=== PATIENT | female | born 1990 | race African-American/Black ===

== ENCOUNTER 2019-08-28 08:20 | Outpatient (CLI) | payer BC, SELFPAY ==
--- NOTE | ~2019-08-28 | XR_ITS ---
EXAMINATION: XR knee LT 3V DATE: 08/28/2019 08:48 INDICATION: Left knee pain. TECHNIQUE: 3 views of left knee were obtained. COMPARISON: None. FINDINGS: Bone alignment is normal. No fracture. There is mild osteoarthritis of medial and patellofe moral compartments characterized by tiny marginal osteophytes. No knee joint effusion. IMPRESSION: 1. Mild left knee osteoarthritis. Reviewed, dictated and finalized at location A.
[2019-08-28 09:06] LABS: Basophils Percent Auto 0.6 % (0.2-1.2); Eosinophils Absolute Auto 0.1 K/mm3 (0-0.3); Hematocrit 36.3 % (37.0-47.0); Hemoglobin 11.9 g/dL (12.0-15.0); Immature Granulocyte Absolute 0.01 K/mm3 (0.00-0.031); Immature Granulocyte Percent A 0.1 % (0-0.5); Lymphocytes Percent Auto 27.3 % (18.3-44.2); Mean Corpuscular HGB Conc 32.8 g/dl (32-36); Mean Corpuscular Hemoglobin 30.4 pg (26-34); Mean Corpuscular Volume 92.8 fl (80-100); Mean Platelet Volume 9.6 fl (7.4-10.4); Monocytes Absolute Auto 0.9 K/mm3 (0.1-0.6); Monocytes Percent Auto 13.4 % (2.6-8.5); Neutrophils Absolute Auto 3.9 K/mm3 (1.3-6.7); Neutrophils Percent Auto 56.6 % (45.5-73.1); Platelet Count Result 303 k/mm3 (150-375); Red Blood Count 3.91 M/mm3 (4.2-5.4); Red Cell Distribution Width 12.8 % (11.5-14.5)
[2019-08-28 09:07] LABS: Alanine Aminotransferase 22 U/L (4-35); Alkaline Phosphatase 46 U/L (38-126); Aspartate Amino Transferase 23 U/L (14-36); Bilirubin,Total 0.4 mg/dL (0.2-1.3); Blood Urea Nitrogen 12 mg/dL (7-17); Calcium 8.8 mg/dL (8.4-10.2); Carbon Dioxide 23 mmol/L (22-30); Chloride 107 mmol/L (98-107); Estimated Glomerular Filt Rate > 60; Glucose 88 mg/dL (65-105); Potassium 4.3 mmol/L (3.4-5.0); Sodium 137 mmol/L (137-145)
[2019-08-28 09:27] LABS: Hemoglobin A1C 5.5 % (<5.7)
== END 2019-08-28 08:21 | disposition home or self-care (01) ==
PROVIDERS: PCP Family Medicine; Visit Provider Physician Assistant
DX: J45.909 Unspecified asthma, uncomplicated (principal); R53.83 Other fatigue; R63.5 Abnormal weight gain; R73.09 Other abnormal glucose; R73.01 Impaired fasting glucose; M17.12 Unilateral primary osteoarthritis, left knee
CPT/HCPCS: 36415; 73562; 80053; 83036; 84443; 85025

== ENCOUNTER → 2021-03-08 14:57 | Outpatient (CLI) | payer BC, SELFPAY ==
--- NOTE | ~2021-03-08 | US_ITS ---
EXAMINATION: US pelvic complete EXAM DATE: 03/08/2021 15:13 INDICATION: Other specified abnormal uterine and vaginal bleeding . TECHNIQUE: Pelvic transabdominal sonogram was performed. There are multiple grayscale and Doppler im ages available for interpretation. There is no prior study for comparison. FINDINGS: Uterus measures 9.2 x 5.2 x 6.0 cm, with multiple fibroids measuring up to 3 cm. Endometri al stripe measures 15 mm, within normal limits. There is no free pelvic fluid. Right adnexa: The ovary measures 3.8 x 2.5 x 4.1 cm and is morphologically normal. Ovarian vascular f low confirmed. Left adnexa: The ovary measures 3.0 x 2.4 x 3.1 cm and is morphologically normal. Ovarian vascular fl ow confirmed. IMPRESSION: Fibroid uterus. Reviewed, dictated and finalized at location G. RY CHEF IMPRESSION: Fibroid uterus.
== END ==
PROVIDERS: Visit Provider Obstetrics & Gynecology
DX: N93.8 Other specified abnormal uterine and vaginal bleeding (principal); D25.9 Leiomyoma of uterus, unspecified
CPT/HCPCS: 76856

== ENCOUNTER 2021-05-26 16:39 | Emergency (ER) | payer BC, SELFPAY ==
[2021-05-26 16:42] VITALS: BP 133/88; PULSE 86; RESP 18; TEMP 36.2; O2SAT 100
--- NOTE | 2021-05-26 17:12 | ED.FEMALEGU ---
HPI - Female Genitourinary General Chief complaint: Vaginal Bleeding Stated complaint: Heavy Menstrual Bleeding Time Seen by Provider: 05/26/21 16:56 Source: patient and RN notes reviewed Mode of arrival: ambulatory Limitations: no limitations History of Present Illness HPI Narrative: Pt is a 31 y/o female, without signifcant PMHx, presents to ED via POV with C/O suprapubic cramping and heavy vaginal bleeding, onset of symptoms two days ago after receiving her first ever dose of Depo BC injection. She reports noting blood clots present and she is saturating a large pad every couple of hours. She endorses feeling light headed when standing at times but denies dizziness, vision changes, CP, SOB, NVDC or urinary discomfort. She has no STI concerns and reports she was screened for and STI by her OBGYN prior to receiving her injection this week (Dr Gillis) MD elicited complaint: vaginal bleeding Onset (ago): day(s) (2) Location of symptoms: suprapubic Severity: mild Female Urogenital Radiation: Non-Radiating Severity scale (1-10): 5 Quality of pain: cramping Consistency: intermittent Vaginal discharge: none Vaginal bleeding: heavy Relieving factors: none Associated symptoms: other (refer to HPI) Treatment prior to arrival: none Sexual activity: Yes Patient : No Date of Last Menstrual Period: 05/24/21 Related Data Home Medications Medication Instructions Recorded Confirmed fexofenadine 60 mg tablet 60 mg PO Q12H 08/21/19 10/17/19 spironolactone 50 mg tablet 50 mg PO DAILY 08/26/20 08/26/20 Allergies Allergy/AdvReac Type Severity Reaction Status Date / Time No Known Allergies Allergy Unknown Unverified 08/26/20 13:56 Review of Systems Review of Systems: refer to [facility] Past Medical History Medical History Allergic rhinitis Asthma Osteoarthritis of left knee Surgical History Surgical History S/P cubital tunnel release Family History Family History Mother Diabetes mellitus Hypertension Social History Social History (Updated 08/26/20 @ 13:56 by Irma Prado CMA) Smoking status: Never smoker Second hand tobacco smoke exposure: No Alcohol intake: never Substance use: never Substance use type: does not use Gender identity (if verbalized by the patient): Female Exam Const: General: healthy appearing, no acute distress and alert Nutritional Appearance: obese Orientation/consciousness: patient oriented x3 Limitations: altered mental status HENMT: Head: normal to inspection General nose exam: Normal nares present Mouth: Yes Normal oral and palatal mucosa present Eyes: General: appearance normal, both eyes and all related structures Visual Del Real: normal visual del real by confrontation Conjunctivae: conjunctivae normal Pupils: Equal, round and reactive pupils present EOM: EOMs intact bilaterally Neck: Neck: normal visual inspection and no meningeal signs Lymphatic: no lymphadenopathy noted Chest: Chest palpation & inspection: normal inspection of the chest Resp: Effort & Inspection: normal respiratory effort Auscultation: clear to auscultation bilaterally Cardio: Rate: regular rate Rhythm: regular rhythm GI: GI Palp: Yes Soft to palpation Other: no guarding, negative lorenz's sign, no pain at McBurney's point. Mild diffuse suprapubic TTP, no palpable mass : General: Yes bladder normal to palpation, Yes CVA tenderness and Yes no CVA tenderness Skin: General skin exam: normal color Neuro: General: patient oriented x3, moves all extremities, no meningeal signs and no focal motor deficits Cranial nerves: Yes Nystagmus not present Speech: normal speech Extrem: General: normal to inspection Psych: Affect: normal affect Attitude: cooperative Judgement: Good judgement present (Psych) Co
[2021-05-26 17:25] LABS: Basophils Absolute Auto 0.1 K/mm3 (0.0-0.1); Basophils Percent Auto 0.8 % (0.2-1.2); Eosinophils Absolute Auto 0.1 K/mm3 (0-0.3); Eosinophils Percent Auto 1.5 % (0-4.4); Hematocrit 33.6 % (37.0-47.0); Hemoglobin 10.9 g/dL (12.0-15.0); Immature Granulocyte Absolute 0.02 K/mm3 (0.00-0.031); Immature Granulocyte Percent A 0.2 % (0-0.5); Lymphocytes Absolute Auto 2.46 K/mm3 (0.9-3.2); Lymphocytes Percent Auto 28.8 % (18.3-44.2); Mean Corpuscular HGB Conc 32.4 g/dl (32-36); Mean Corpuscular Volume 86.4 fl (80-100); Mean Platelet Volume 8.8 fl (7.4-10.4); Monocytes Percent Auto 11.5 % (2.6-8.5); Neutrophils Absolute Auto 4.9 K/mm3 (1.3-6.7); Neutrophils Percent Auto 57.2 % (45.5-73.1); Platelet Count Result 394 k/mm3 (150-375); Red Blood Count 3.89 M/mm3 (4.2-5.4); Red Cell Distribution Width 13.5 % (11.5-14.5); White Blood Count 8.5 K/mm3 (4.5-10.0)
[2021-05-26 17:35] LABS: Alanine Aminotransferase 28 U/L (4-35); Albumin Level 4.3 g/dL (3.5-5.1); Alkaline Phosphatase 56 U/L (38-126); Anion Gap 8 mmol/L (8-16); Aspartate Amino Transferase 31 U/L (14-36); Bilirubin,Total 0.4 mg/dL (0.2-1.3); Blood Urea Nitrogen 16 mg/dL (7-17); Calcium 9.1 mg/dL (8.4-10.2); Carbon Dioxide 20 mmol/L (22-30); Chloride 109 mmol/L (98-107); Estimated CRCL calculation 110 ml/min; Estimated Glomerular Filt Rate > 60; Glucose 101 mg/dL (65-110); Potassium 4.4 mmol/L (3.4-5.0); SPREG INTERNAL CONTROL Positive; Serum Qual hCG Negative; Sodium 137 mmol/L (137-145)
== END 2021-05-26 17:56 | disposition home or self-care (01) ==
PROVIDERS: Emergency Provider Nurse Practitioner Family; PCP Family Medicine
DX: N93.8 Other specified abnormal uterine and vaginal bleeding (principal); J45.909 Unspecified asthma, uncomplicated; M17.12 Unilateral primary osteoarthritis, left knee
CPT/HCPCS: 36415; 80053; 84703; 85025; 99284

== ENCOUNTER 2021-08-15 20:33 | Emergency (ER) | payer BC, SELFPAY ==
[2021-08-15 20:44] VITALS: BP 140/78; PULSE 92; RESP 18; TEMP 36.4; O2SAT 100
[2021-08-15 21:30] VITALS: BP 116/75; PULSE 91; RESP 16; O2SAT 100
--- NOTE | 2021-08-15 22:00 | PC.NURSE ---
Pt refused pelvic exam. EDP Michael notified.
[2021-08-15 22:12] VITALS: BP 110/63; PULSE 92
[2021-08-15 22:14] VITALS: BP 120/76; PULSE 96
[2021-08-15 22:15] LABS: Basophils Absolute Auto 0.1 K/mm3 (0.0-0.1); Basophils Percent Auto 0.4 % (0.2-1.2); Eosinophils Absolute Auto 0.1 K/mm3 (0-0.3); Eosinophils Percent Auto 0.4 % (0-4.4); Hematocrit 28.3 % (37.0-47.0); Hemoglobin 8.8 g/dL (12.0-15.0); Immature Granulocyte Absolute 0.05 K/mm3 (0.00-0.031); Immature Granulocyte Percent A 0.4 % (0-0.5); Lymphocytes Absolute Auto 2.33 K/mm3 (0.9-3.2); Lymphocytes Percent Auto 19.6 % (18.3-44.2); Mean Corpuscular HGB Conc 31.1 g/dl (32-36); Mean Corpuscular Hemoglobin 27.3 pg (26-34); Mean Corpuscular Volume 87.9 fl (80-100); Mean Platelet Volume 8.5 fl (7.4-10.4); Monocytes Percent Auto 8.4 % (2.6-8.5); Neutrophils Absolute Auto 8.4 K/mm3 (1.3-6.7); Neutrophils Percent Auto 70.8 % (45.5-73.1); Platelet Count Result 438 k/mm3 (150-375); Red Blood Count 3.22 M/mm3 (4.2-5.4); White Blood Count 11.9 K/mm3 (4.5-10.0)
[2021-08-15 22:16] VITALS: BP 110/81; PULSE 107
--- NOTE | 2021-08-15 22:19 | ED.FEMALEGU ---
HPI - Female Genitourinary General Chief complaint: Vaginal Bleeding Stated complaint: Vaginal bleed, pt states changing pads q 30 min Time Seen by Provider: 08/15/21 21:31 Source: patient, RN notes reviewed and old records reviewed Mode of arrival: ambulatory Limitations: no limitations History of Present Illness HPI Narrative: This is a 31 year old female with history of fibroids who presents for evaluation of heavy vaginal bleeding. Patient started her menstrual cycle today. She developed lower abdominal cramping, and then she developed heavy vaginal bleeding. She reports bleeding started 5 hours ago. She was changing her pad every 30 minutes, but her bleeding has decreased over past 1.5 hours. She has taken ibuprofen for her pain. She denies weakness or shortness of breath. She denies nausea or vomiting. Patient states she knows she has fibroids but she came to ER to see if she has endometriosis. She has been seeing her housekeeper/laundry assistant Dr. Gillis for her symptoms and she received depo last week for her bleeding. Related Data Home Medications Medication Instructions Recorded Confirmed fexofenadine 60 mg tablet 60 mg PO Q12H 08/21/19 10/17/19 spironolactone 50 mg tablet 50 mg PO DAILY 08/26/20 08/26/20 Allergies Allergy/AdvReac Type Severity Reaction Status Date / Time No Known Allergies Allergy Unknown Verified 08/15/21 21:29 Review of Systems Review of Systems: All systems reviewed & are unremarkable except as noted in HPI and below PMFSH Past Medical History Medical History Allergic rhinitis Asthma Osteoarthritis of left knee Surgical History Surgical History S/P cubital tunnel release Family History Family History Mother Diabetes mellitus Hypertension Social History Social History (Updated 08/26/20 @ 13:56 by Irma Prado CMA) Smoking status: Never smoker Second hand tobacco smoke exposure: No Alcohol intake: never Substance use: never Substance use type: does not use Gender identity (if verbalized by the patient): Female Exam Const: General: no acute distress and alert Orientation/consciousness: patient oriented x3 Eyes: EOM: EOMs intact bilaterally Chest: Chest palpation & inspection: normal inspection of the chest Resp: Effort & Inspection: normal respiratory effort and no retractions Auscultation: clear to auscultation bilaterally Cardio: Rate: regular rate Rhythm: regular rhythm Heart sounds: no murmurs GI: GI Palp: Yes Soft to palpation, No Tenderness to palpation present (GI) and No Guarding due to palpation present (GI) Auscultation: normal bowel sounds Skin: General skin exam: normal color Rashes: no rashes Neuro: General: patient oriented x3, moves all extremities and CN's II-XI intact bilaterally Psych: Mental Status: mental status grossly normal Affect: normal affect Course Reevaluation(s) Reevaluation #1: Patient refuses pelvic exam. She states she is only have spotting at this point. I informed patient that she is anemic now with hemoglobin of 8.8. I notified Dr. Gillis who will follow up with patient. Date: 08/15/21 Time: 23:01 Vital Signs Vital signs: Vital Signs Temperature 97.6 F 08/15/21 20:44 Pulse Rate 92 08/15/21 20:44 Respiratory Rate 18 08/15/21 20:44 Blood Pressure 140/78 08/15/21 20:44 Pulse Oximetry 100 08/15/21 20:44 Temperature 97.6 F 08/15/21 20:44 Pulse Rate 107 H 08/15/21 22:16 Respiratory Rate 16 08/15/21 21:30 Blood Pressure 110/81 08/15/21 22:16 Pulse Oximetry 100 08/15/21 21:30 MDM - Female Genitourinary Medical Records Attestation: I reviewed the patient's medical records. Lab Data Attestation: I reviewed the patient's lab results. Result diagrams: 08/15/21 22:09 Labs: Lab R
== END 2021-08-15 23:14 | disposition home or self-care (01) ==
PROVIDERS: Emergency Provider General Practice; PCP Obstetrics & Gynecology Gynecology
DX: N92.0 Excessive and frequent menstruation with regular cycle (principal); D64.9 Anemia, unspecified; J45.909 Unspecified asthma, uncomplicated; R73.03 Prediabetes; M17.12 Unilateral primary osteoarthritis, left knee; Z79.84 Long term (current) use of oral hypoglycemic drugs
CPT/HCPCS: 36415; 81025; 85025; 99284

== ENCOUNTER 2021-09-01 08:15 | Outpatient (RCR) | payer BC, SELFPAY ==
[2021-08-31 16:37] LABS: Hematocrit 27.1 % (37.0-47.0)
[2021-09-01] VITALS (8 sets, daily range): BP systolic 100–132; BP diastolic 64–81; PULSE 74–88; RESP 18–20; TEMP 37.2–37.8; O2SAT 96–100
== END 2021-11-29 23:59 | disposition home or self-care (01) ==
LOC: ANHCPCTRAN 08:15
PROVIDERS: PCP Family Medicine; Visit Provider Obstetrics & Gynecology Gynecology
DX: N92.0 Excessive and frequent menstruation with regular cycle (principal); D64.9 Anemia, unspecified
CPT/HCPCS: 36415; 36430; 85014; 85018; 86850; 86900; 86901; 86920; P9016

== ENCOUNTER 2021-09-05 14:54 | Outpatient (CLI) | payer BC, SELFPAY ==
[2021-09-05 15:36] LABS: Hematocrit 36.5 % (37.0-47.0); Hemoglobin 11.2 g/dL (12.0-15.0); Mean Corpuscular HGB Conc 30.7 g/dl (32-36); Mean Corpuscular Hemoglobin 28.4 pg (26-34); Mean Corpuscular Volume 92.6 fl (80-100); Mean Platelet Volume 8.5 fl (7.4-10.4); Platelet Count Result 470 k/mm3 (150-375); Red Blood Count 3.94 M/mm3 (4.2-5.4); Red Cell Distribution Width 16.9 % (11.5-14.5); White Blood Count 8.4 K/mm3 (4.5-10.0)
== END 2021-09-05 14:55 | disposition home or self-care (01) ==
LOC: ANHLAB 14:56
PROVIDERS: PCP Family Medicine; Visit Provider Obstetrics & Gynecology Gynecology
DX: N92.0 Excessive and frequent menstruation with regular cycle (principal)
CPT/HCPCS: 36415; 85027

== ENCOUNTER 2021-09-19 09:38 | Outpatient (CLI) | payer BC, SELFPAY ==
[2021-09-19 10:16] LABS: Anion Gap 6 mmol/L (8-16); Blood Urea Nitrogen 13 mg/dL (7-17); Calcium 8.6 mg/dL (8.4-10.2); Carbon Dioxide 22 mmol/L (22-30); Chloride 109 mmol/L (98-107); Estimated Glomerular Filt Rate > 60; Glucose 91 mg/dL (65-110); Sodium 137 mmol/L (137-145)
== END 2021-09-19 09:39 | disposition home or self-care (01) ==
LOC: ANHSURGERY 09:41
PROVIDERS: Anesthesiology; PCP Family Medicine; Visit Provider Obstetrics & Gynecology Gynecology
DX: R73.9 Hyperglycemia, unspecified (principal); Z01.818 Encounter for other preprocedural examination
CPT/HCPCS: 36415; 80048

== ENCOUNTER 2021-09-22 01:17 | Day surgery (SDC) | payer BC, SELFPAY ==
[2021-09-15 09:42] VITALS: BMI 41.6
--- NOTE | 2021-09-15 09:44 | PC.NURSE ---
Report to the Outpatient Waiting Room, entrance under the green pavilion located off [facility], at time ___0600am____ on date ___0-28-20____. OR Time: __0730am . - You and your visitor will be asked a series of questions to screen for COVID 19 for your protection. - Only one visitor is allowed at this time. - The patient visitor is requested to leave or wait in car when not with patient. - A mask is required within the hospital. Patients may have clear liquids (water, carbonated beverages, clear teas, apple juice) until 3 hours prior to surgery with a maximum of 20 ounces. Nothing to drink after 04:30 am 09-22-21 - No food from midnight 09-21-21 until time of surgery - Infants may have breast milk until 4 hours before surgery, infant formula 6 hours prior to surgery. - Children will be allowed to drink immediately following surgery. If applicable, please bring a bottle or sippy cup to assist with drinking. Juice, water, soda, and popsicles are readily available. For infants on formula, please bring formula the day of surgery. Pacifiers are allowed. Take the following medications with a SIP of water the morning of surgery: inhaler as needed Medications to discontinue per physician supplements/vitamins Date to take last tikb 3-45-21 Please no make-up, nail danish, hairspray, perfume, deodorant, or body powder the day of surgery. No jewelry (including any body piercings) or valuables the day of surgery, leave them at home. Please take a shower or bath the night before, or the morning of, surgery with an antibacterial soap. Wear comfortable, loose fitting clothing. Children are encouraged to wear pajamas. - Jewelry must be removed prior to entering the operating room. Rings and piercings that are not removed may be cut off. - The hospital will not accept responsibility for valuables. - Please leave all valuables, including medications, at home the day of surgery. If you are going home after surgery, a licensed local company flatbed truck driver must drive you home. - NO public transportation without another adult. - We recommend that an adult stay with you for 24 hours following discharge. - We also recommend that you do not drive, make important decision, drink alcoholic beverages, or take any drugs that were not prescribed by your health care provider for at least 24 hours after your discharge time. For Pediatric surgeries, we recommend two adults accompany the child home (only one inside the building at this time). Follow any additional instructions given to you from your surgeon. If you or anyone in your household have experienced Covid symptoms in the past week, please notify your surgeon or the nurse liaison at the phone number below for possible testing. Telephone instructions given to ___patient and asked if any additional questions and then verbalized understanding. Patient advised to call surgeon office or pre surgery nurse liaison [phone] if any additional questions.
--- NOTE | 2021-09-21 17:06 | WPDANESEPPF ---
Anes - Initial Pre Proc Eval Procedure: Operation Date: 09/22/21 07:30 Proposed Procedures p Hysteroscopy Dilation and Curettage with Possible Myosure - Laura Gillis MD Date/Time: 09/21/21 17:06 Surgeon: Laura Gillis MD Pre Op Diagnosis: menorrhagia, fibroids Patient Data Age: 31 Gender: F Height: 1.63 m Weight: 110 kg Allergies Allergy/AdvReac Type Severity Reaction Status Date / Time ethinyl estradiol AdvReac Mild Rash Verified 09/22/21 06:22 [From Sprintec (28)] norgestimate AdvReac Mild Rash Verified 09/22/21 06:22 [From Sprintec (28)] Home Medications Medication Instructions Recorded Confirmed Type fluticasone propionate 50 1 spray intranasal Q12H #18.2 mL 10/29/19 09/22/21 Rx mcg/actuation nasal spray,suspension albuterol sulfate 90 mcg/actuation 2 puff inhalation Q4H PRN 08/26/20 09/22/21 Rx aerosol inhaler (ProAir HFA) shortness of breath or wheezing #8.5 grams azelastine 137 mcg (0.1 %) nasal 1 spray intranasal Q12H #30 mL 08/26/20 09/15/21 Rx spray aerosol hyoscyamine sulfate 0.125 mg tablet 0.125 mg PO QID PRN dyspepsia #90 08/26/20 09/15/21 Rx tabs metformin 500 mg tablet 500 mg PO BID #180 tabs 08/26/20 09/22/21 Rx spironolactone 50 mg tablet 50 mg PO DAILY 08/26/20 09/22/21 History montelukast 10 mg tablet 10 mg PO QPM #90 tabs 12/16/20 09/22/21 Rx (Singulair) ferrous gluconate 324 mg (37.5 mg 324 mg PO DAILY #14 tabs 08/15/21 09/22/21 Rx iron) tablet sodium sul 1.479 gram-potas ch See Rx Instructions PO PER PKG DIR 09/07/21 Rx 0.188 gram-magnes sul 0.225 gram #24 tabs tablet (Sutab) Patient hx anesthesia problems: none Family hx anesthesia problems: none Results Review: All pre-operative results and documents have been reviewed as part of the pre-operative evaluation. [facility] Past Medical History Medical History (Updated 09/21/21 @ 17:07 by Rupert Osman MD) Abnormal uterine bleeding Allergic rhinitis Asthma Leiomyoma Morbid obesity with BMI of 40.0-44.9, adult Osteoarthritis of left knee Surgical History Surgical History S/P cubital tunnel release Family History Family History Mother Diabetes mellitus Hypertension Social History Social History Smoking status: Never smoker Second hand tobacco smoke exposure: No Alcohol intake: never Substance use: never Substance use type: does not use Living arrangements: with family Gender identity (if verbalized by the patient): Female Spiritual care concerns: No Anes - Eval Final PreProcedure Day of Procedure 09/21/21 17:06 Patient weight: morbidly obese Heart: regular rate and rhythm Lungs: clear to auscultation and normal air movement Airway: Mallampati scale class II Neurological: alert and oriented Last oral intake: >/= 8 hours ASA classification: III Emergent: no Anesthetic plan: proceed Anesthesia type and monitoring: general GIVS and LMA Results Review: All pre-operative results and documents have been reviewed as part of the pre-operative evaluation. Informed Consent: The patient's anesthetic plan and its attendant risks and benefits were discussed with the patient/family/POA. Questions were solicited and answers provided to the satisfaction of the patient/family/POA.
[2021-09-22] VITALS (8 sets, daily range): BP systolic 100–117; BP diastolic 52–71; PULSE 67–77; RESP 16–25; TEMP 36.1–36.6; O2SAT 96–100
[2021-09-22] MEDS: ACETAMINOPHEN 500 MG TABLET 1000 MG PO (06:26)
[2021-09-22] MEDS: LACTATED RINGERS 1,000 ML 30 ML IV CONT (06:53)
--- NOTE | 2021-09-22 07:00 | WPDHPUPDATE1 ---
History and Physical Update Update Date/Time: 09/22/21 07:00 History and Physical has been reviewed, including an updated exam of the patient. There are NO changes in the patient's condition. Risks, benefits, and alternatives have been discussed and questions answered. Patient agrees to proceed with procedure.
--- NOTE | 2021-09-22 07:00 | PM.HPGS ---
History of Present Illness History of Present Illness Consent: Risks, benefits, and alternatives have been discussed and questions answered. Patient agrees to proceed with procedure. Chief complaint: menorrhagia, fibroids Narrative: Janey Slade is a 31 year old female with menorrhagia and severe anemia requiring 2units packed red blood cells the 1st week of August. Most recent hemoglobin after 2units of packed red cells and a month of iron is 11.2. Pelvic ultrasound reveals multiple fibroids with the largest measuring 3cm. It was recommended to proceed with D&C hysteroscopy and possible MyoSure resection of fibroids. Risks of infection, bleeding, perforation, and fluid imbalance were reviewed. Patient voiced understanding and agrees to proceed. She has been taking Lysteda to prevent heavy bleeding. Review of Systems Review of Systems: not repeated day of surgery; patient states no changes in status PMFSH Past Medical History Medical History (Updated 09/21/21 @ 17:07 by Rupert Osman MD) Abnormal uterine bleeding Allergic rhinitis Asthma Leiomyoma Morbid obesity with BMI of 40.0-44.9, adult Osteoarthritis of left knee Surgical History Surgical History S/P cubital tunnel release Family History Family History Mother Diabetes mellitus Hypertension Social History Social History Smoking status: Never smoker Second hand tobacco smoke exposure: No Alcohol intake: never Substance use: never Substance use type: does not use Living arrangements: with family Gender identity (if verbalized by the patient): Female Spiritual care concerns: No Meds Home Medications and Allergies Home Medications Medication Instructions Recorded Confirmed Type fluticasone propionate 50 1 spray intranasal Q12H #18.2 mL 10/29/19 09/22/21 Rx mcg/actuation nasal spray,suspension albuterol sulfate 90 mcg/actuation 2 puff inhalation Q4H PRN 08/26/20 09/22/21 Rx aerosol inhaler (ProAir HFA) shortness of breath or wheezing #8.5 grams azelastine 137 mcg (0.1 %) nasal 1 spray intranasal Q12H #30 mL 08/26/20 09/15/21 Rx spray aerosol hyoscyamine sulfate 0.125 mg tablet 0.125 mg PO QID PRN dyspepsia #90 08/26/20 09/15/21 Rx tabs metformin 500 mg tablet 500 mg PO BID #180 tabs 08/26/20 09/22/21 Rx spironolactone 50 mg tablet 50 mg PO DAILY 08/26/20 09/22/21 History montelukast 10 mg tablet 10 mg PO QPM #90 tabs 12/16/20 09/22/21 Rx (Singulair) ferrous gluconate 324 mg (37.5 mg 324 mg PO DAILY #14 tabs 08/15/21 09/22/21 Rx iron) tablet sodium sul 1.479 gram-potas ch See Rx Instructions PO PER PKG DIR 09/07/21 Rx 0.188 gram-magnes sul 0.225 gram #24 tabs tablet (Sutab) Allergies Allergy/AdvReac Type Severity Reaction Status Date / Time ethinyl estradiol AdvReac Mild Rash Verified 09/22/21 06:22 [From Sprintec (28)] norgestimate AdvReac Mild Rash Verified 09/22/21 06:22 [From Sprintec (28)] Exam Const: General: healthy appearing and alert Nutritional Appearance: obese (BMI of 42) Orientation/consciousness: patient oriented x3 GI: GI Palp: Yes Soft to palpation, No Tenderness to palpation present (GI) and No Palpable mass present : External Female Exam: normal external appearance Speculum Exam - Vagina: normal appearance of the vagina and normal vaginal discharge Speculum Exam - Cervix: normal appearance of the cervix Bimanual exam- vagina & uterus: uterine size normal and consistency normal Bimanual Exam- Adnexa, other: normal adnexae and No adnexal tenderness Neuro: General: patient oriented x3 Assessment and Plan Assessment and plan (1) Abnormal uterine bleeding: Code(s): N93.9 - Abnormal uterine and vaginal bleeding, unspecified Status: Acute Assessment and Plan: Plan is
[2021-09-22 07:07] LABS: Glucose Point of Care 105 mg/dl (65-105)
[2021-09-22] MEDS: FERRIC SUBSULFATE 8 ML SOLUTION WITH APPLICATOR TOPICAL (08:45)
[2021-09-22] MEDS: KETOROLAC 30 MG/ML VIAL (*BKC) IV PUSH (08:51)
[2021-09-22] MEDS: fentaNYL CITRATE INJ (*CRX) 100 MCG/2 ML VIAL 25 MCG IV PUSH ×4 (09:25→09:36)
[2021-09-22] MEDS: oxyCODONE HCL (*CRX) 5 MG TAB IR PO (10:00)
[2021-09-22 10:15] LABS: Glucose Point of Care 126 mg/dl (65-105)
--- NOTE | 2021-09-22 10:32 | SUR.PHASEII ---
this nurse called dr mustafa due to now instructions or prescriptions and she said [employer] instructions and take NSAIDs as needed for pain.
--- NOTE | 2021-09-22 13:08 | W.PM.PROC2 ---
Procedure Note - Detailed Date of Procedure 09/22/21 Pre-op Diagnosis menorrhagia, fibroids Post-op Diagnosis Same Procedure Performed Myosure resection of fibroids; D&C hysteroscopy Surgeon Laura Gillis MD Anesthesia MAC and Local Findings uterus 10 cm with multiple fibroids Description of Procedure The patient was taken to the operating room and placed under anesthesia in the dorsal lithotomy position. She was prepped and draped in the usual sterile fashion. [place] speculum placed in the vagina and cervix grasped anterior with tenaculum. Injected with 1% lidocaine. Uterus sounds to 10 cm. Cervix serially dilated to an 8 hegar. Myosure hysteroscope placed and the above stated findings. Myosure device placed. For approximately 75 minutes, myosure device used to remove visible fiboids. Fluid balance reported to me as 1200 cc deficit so switched to myoma graspers and additional 15 min spent removing pieces of fibroids. Hysteroscope placed when no further tissue obatined and a round fibroid still noted to right side wall. This was too round to grasp and the hysteroscope removed. Sharp curette used until good uterine cry noted in all areas. All instruments removed and monsels placed on tenaculum site. Sponge, instrument, and needle counts correct. Final fluid count was only 600 cc deficit. Estimated Blood Loss 50 Drains No Packing No Pathology Yes (myosure shavings, curettings, pieces from myoma grasper) Complications No immediate complications Condition Stable Disposition PACU
== END 2021-09-22 10:40 | disposition home or self-care (01) ==
PROVIDERS: PCP Family Medicine; Visit Provider Obstetrics & Gynecology Gynecology
PROC: 0U5B8ZZ Destruction of Endometrium, Via Natural or Artificial Opening Endoscopic (ICD-10-PCS; CPT 58563; principal; 2021-09-22 07:30)
DX: N93.9 Abnormal uterine and vaginal bleeding, unspecified (principal); D25.9 Leiomyoma of uterus, unspecified; Z79.84 Long term (current) use of oral hypoglycemic drugs; Z79.51 Long term (current) use of inhaled steroids; J45.909 Unspecified asthma, uncomplicated; E66.01 Morbid (severe) obesity due to excess calories; Z68.41 Body mass index [BMI] 40.0-44.9, adult
CPT/HCPCS: 58561; 82948; 88305; A9270; J1885; J2250; J3010; J7030; J7120

== ENCOUNTER 2021-10-31 00:54 | Day surgery (SDC) | payer BC, SELFPAY ==
[2021-10-13 15:08] VITALS: BMI 41.4
--- NOTE | 2021-10-28 10:07 | SUR.PREOP ---
1007 Spoke with the patient and she is taking the Sutab prep.
[2021-10-31 09:20] VITALS: BMI 42.0
[2021-10-31] MEDS: LACTATED RINGERS 1,000 ML 150 ML IV CONT (09:32)
[2021-10-31 09:33] LABS: Glucose Point of Care 75 mg/dl (65-105)
--- NOTE | 2021-10-31 09:53 | WPDANESEPPF ---
Anes - Initial Pre Proc Eval Procedure: Operation Date: 10/31/21 10:30 Proposed Procedures p Colonoscopy - David Lundy MD Date/Time: 10/31/21 09:53 Surgeon: David Lundy MD Pre Op Diagnosis: IBS Patient Data Age: 31 Gender: F Height: 1.63 m Weight: 111 kg Allergies Allergy/AdvReac Type Severity Reaction Status Date / Time ethinyl estradiol AdvReac Mild Rash Verified 10/13/21 15:07 [From Sprintec (28)] norgestimate AdvReac Mild Rash Verified 10/13/21 15:07 [From Sprintec (28)] Home Medications Medication Instructions Recorded Confirmed Type fluticasone propionate 50 1 spray intranasal Q12H #18.2 mL 10/29/19 10/13/21 Rx mcg/actuation nasal spray,suspension albuterol sulfate 90 mcg/actuation 2 puff inhalation Q4H PRN 08/26/20 10/13/21 Rx aerosol inhaler (ProAir HFA) shortness of breath or wheezing #8.5 grams azelastine 137 mcg (0.1 %) nasal 1 spray intranasal Q12H #30 mL 08/26/20 10/13/21 Rx spray aerosol metformin 500 mg tablet 500 mg PO BID #180 tabs 08/26/20 10/13/21 Rx spironolactone 50 mg tablet 50 mg PO DAILY 08/26/20 10/13/21 History montelukast 10 mg tablet 10 mg PO QPM #90 tabs 12/16/20 10/13/21 Rx (Singulair) ferrous gluconate 324 mg (37.5 mg 324 mg PO DAILY #14 tabs 08/15/21 10/13/21 Rx iron) tablet sodium sul 1.479 gram-potas ch See Rx Instructions PO PER PKG DIR 09/07/21 Rx 0.188 gram-magnes sul 0.225 gram #24 tabs tablet (Sutab) relugolix 40 mg-estradiol 1 1 tablet PO DAILY 10/13/21 10/13/21 History mg-norethindrone acetate 0.5 mg tablet (Myfembree) Laboratory Tests 10/31/21 09:29 POC Capillary Glucose 75 mg/dl mg/dl (65-105) Patient hx anesthesia problems: none Family hx anesthesia problems: none Results Review: All pre-operative results and documents have been reviewed as part of the pre-operative evaluation. [facility] Past Medical History Medical History (Updated 09/29/21 @ 15:16 by David Lundy MD) Abnormal uterine bleeding Allergic rhinitis Asthma Blood in stool Leiomyoma Morbid obesity with BMI of 40.0-44.9, adult Osteoarthritis of left knee Surgical History Surgical History S/P cubital tunnel release Family History Family History Mother Diabetes mellitus Hypertension Social History Social History Smoking status: Never smoker Second hand tobacco smoke exposure: No Alcohol intake: never Substance use: never Substance use type: does not use Living arrangements: with family Gender identity (if verbalized by the patient): Female Spiritual care concerns: No Anes - Eval Final PreProcedure Day of Procedure 10/31/21 09:53 Patient weight: morbidly obese Heart: regular rate and rhythm Lungs: clear to auscultation Airway: Mallampati scale class II Neurological: alert and oriented Last oral intake: >/= 8 hours ASA classification: III Emergent: no Anesthetic plan: proceed Anesthesia type and monitoring: general GIVS Results Review: All pre-operative results and documents have been reviewed as part of the pre-operative evaluation. Informed Consent: The patient's anesthetic plan and its attendant risks and benefits were discussed with the patient/family/POA. Questions were solicited and answers provided to the satisfaction of the patient/family/POA.
--- NOTE | 2021-10-31 09:58 | PM.HPGS ---
History of Present Illness History of Present Illness Consent: Risks, benefits, and alternatives have been discussed and questions answered. Patient agrees to proceed with procedure. Chief complaint: IBS Narrative: Janey Slade is a 31 year old female with ibs-c on linzess, last colonoscopy 10 years ago but recently also noted mucus in stool Review of Systems Constitutional: Constitutional: Denies headache(s) and Denies weakness Eyes: Eyes: Denies blurry vision ENT: Reports Normal hearing present, Denies headache(s) and Denies neck pain Cardiovascular: Cardiovascular: Denies chest pain and Denies dyspnea Respiratory: Respiratory: Denies dyspnea Gastrointestinal: Gastrointestinal: Reports no additional gastrointestinal complaints Genitourinary: Genitourinary: Denies dysuria Musculoskeletal: Musculoskeletal: Denies neck pain Integumentary/Breasts: Skin/Breast: Denies dry skin Neurologic: Reports Normal hearing present, Denies headache(s) and Denies weakness Psychiatric: Psychiatric: Denies anxiety Endocrine: Endocrine: Denies change in body appearance Hematologic/Lymphatic: Hematologic/Lymphatic: Denies easy bleeding Allergic/Immunologic: Allergic/Immunologic: Denies urticaria PMFSH Past Medical History Medical History (Updated 09/29/21 @ 15:16 by David Lundy MD) Abnormal uterine bleeding Allergic rhinitis Asthma Blood in stool Leiomyoma Morbid obesity with BMI of 40.0-44.9, adult Osteoarthritis of left knee Surgical History Surgical History S/P cubital tunnel release Family History Family History Mother Diabetes mellitus Hypertension Social History Social History Smoking status: Never smoker Second hand tobacco smoke exposure: No Alcohol intake: never Substance use: never Substance use type: does not use Living arrangements: with family Gender identity (if verbalized by the patient): Female Spiritual care concerns: No Meds Home Medications and Allergies Home Medications Medication Instructions Recorded Confirmed Type fluticasone propionate 50 1 spray intranasal Q12H #18.2 mL 10/29/19 10/13/21 Rx mcg/actuation nasal spray,suspension albuterol sulfate 90 mcg/actuation 2 puff inhalation Q4H PRN 08/26/20 10/13/21 Rx aerosol inhaler (ProAir HFA) shortness of breath or wheezing #8.5 grams azelastine 137 mcg (0.1 %) nasal 1 spray intranasal Q12H #30 mL 08/26/20 10/13/21 Rx spray aerosol metformin 500 mg tablet 500 mg PO BID #180 tabs 08/26/20 10/13/21 Rx spironolactone 50 mg tablet 50 mg PO DAILY 08/26/20 10/13/21 History montelukast 10 mg tablet 10 mg PO QPM #90 tabs 12/16/20 10/13/21 Rx (Singulair) ferrous gluconate 324 mg (37.5 mg 324 mg PO DAILY #14 tabs 08/15/21 10/13/21 Rx iron) tablet sodium sul 1.479 gram-potas ch See Rx Instructions PO PER PKG DIR 09/07/21 Rx 0.188 gram-magnes sul 0.225 gram #24 tabs tablet (Sutab) relugolix 40 mg-estradiol 1 1 tablet PO DAILY 10/13/21 10/13/21 History mg-norethindrone acetate 0.5 mg tablet (Myfembree) Allergies Allergy/AdvReac Type Severity Reaction Status Date / Time ethinyl estradiol AdvReac Mild Rash Verified 10/13/21 15:07 [From Sprintec (28)] norgestimate AdvReac Mild Rash Verified 10/13/21 15:07 [From Sprintec (28)] Exam Const: General: comfortable and no acute distress HENMT: General nose exam: Normal nares present Eyes: General: appearance normal, both eyes and all related structures Neck: Neck: no JVD Resp: Auscultation: clear to auscultation bilaterally Cardio: Rate: regular rate Rhythm: regular rhythm GI: Inspection: non-distended GI Palp: Yes Soft to palpation Skin: General skin exam: normal color Neuro: General: gait normal Speech:
[2021-10-31 10:28] VITALS: BP 125/85; PULSE 63; RESP 25; O2SAT 100
[2021-10-31 10:38] VITALS: BP 125/85; PULSE 62; RESP 23; O2SAT 100
[2021-10-31 10:48] VITALS: BP 125/89; PULSE 61; RESP 23; O2SAT 100
== END 2021-10-31 11:05 | disposition home or self-care (01) ==
PROVIDERS: PCP Family Medicine; Visit Provider Internal Medicine Gastroenterology
PROC: 0DJD8ZZ Inspection of Lower Intestinal Tract, Via Natural or Artificial Opening Endoscopic (ICD-10-PCS; CPT 45378; principal; 2021-10-31 10:30)
DX: Z12.11 Encounter for screening for malignant neoplasm of colon (principal); K63.5 Polyp of colon; K58.9 Irritable bowel syndrome, unspecified; K59.00 Constipation, unspecified; K57.30 Diverticulosis of large intestine without perforation or abscess without bleeding; Z79.84 Long term (current) use of oral hypoglycemic drugs; Z79.51 Long term (current) use of inhaled steroids; J45.909 Unspecified asthma, uncomplicated; E66.01 Morbid (severe) obesity due to excess calories; Z68.41 Body mass index [BMI] 40.0-44.9, adult
CPT/HCPCS: 45385; 82948; 88305; J2704; J7120

== ENCOUNTER 2021-12-23 14:59 | Outpatient (CLI) | payer BC, SELFPAY ==
[2021-12-23 15:33] LABS: Hematocrit 37.7 % (37.0-47.0); Hemoglobin 11.7 g/dL (12.0-15.0)
[2021-12-23 15:44] LABS: Anion Gap 13 mmol/L (8-16); Blood Urea Nitrogen 14 mg/dL (7-17); Carbon Dioxide 21 mmol/L (22-30); Chloride 105 mmol/L (98-107); Estimated Glomerular Filt Rate > 60; Glucose 85 mg/dL (65-110); Potassium 3.8 mmol/L (3.4-5.0); Sodium 139 mmol/L (137-145)
== END 2021-12-23 15:00 | disposition home or self-care (01) ==
LOC: ANHSURGERY 15:05
PROVIDERS: Anesthesiology; PCP Family Medicine; Visit Provider Obstetrics & Gynecology Gynecology
DX: R73.03 Prediabetes (principal); D64.9 Anemia, unspecified; Z01.818 Encounter for other preprocedural examination
CPT/HCPCS: 36415; 80048; 85014; 85018

== ENCOUNTER 2021-12-26 00:45 | Day surgery (SDC) | payer BC, SELFPAY ==
[2021-12-22 09:18] VITALS: BMI 41.3
--- NOTE | 2021-12-22 09:25 | PC.NURSE ---
Report to the Outpatient Waiting Room, entrance under the green pavilion located off [facility], at time 6:30 on date 12/26/21. OR Time: 8:30. Time changes happen often and if your time is changed the preop area will call you the afternoon before. - You and your visitor will be asked to self-screen and do not enter if you have any COVID symptoms. - Only one visitor and NO children visitors are allowed at this time. - The patient visitor is requested to leave or wait in car when not with patient due to restrictions. - A mask is required within the hospital. Patients may have clear liquids (water, carbonated beverages, clear teas, apple juice) until 3 hours prior to surgery (5:30) with a maximum of 20 ounces. - No food from midnight until time of surgery Take the following medications with a SIP of water the morning of surgery: INHALER IF NEEDED Medications to discontinue per physician: N/A Date to take last dose: N/A Please no make-up, nail bengali, hairspray, perfume, deodorant, or body powder the day of surgery. No jewelry (including any body piercings) or valuables the day of surgery, leave them at home. Please take a shower or bath the night before, or the morning of, surgery with an antibacterial soap. Wear comfortable, loose fitting clothing. - Jewelry must be removed prior to entering the operating room. Rings and piercings that are not removed may be cut off. - The hospital will not accept responsibility for valuables. - Please leave all valuables, including medications, at home the day of surgery. If you are going home after surgery, a licensed moving van driver must drive you home. - NO public transportation without another adult. - We recommend that an adult stay with you for 24 hours following discharge. - We also recommend that you do not drive, make important decision, drink alcoholic beverages, or take any drugs that were not prescribed by your health care provider for at least 24 hours after your discharge time. Follow any additional instructions given to you from your surgeon. If you or anyone in your household have experienced Covid symptoms in the past week, please notify your surgeon or the nurse liaison at the phone number below for possible testing. Telephone instructions given to PT - REGAN MCKENNA and asked if any additional questions and then verbalized understanding. Patient advised to call surgeon office or pre surgery nurse liaison [phone] if any additional questions.
[2021-12-26] MEDS: ACETAMINOPHEN 500 MG TABLET 1000 MG PO (06:59)
[2021-12-26] MEDS: LACTATED RINGERS 1,000 ML 30 ML IV CONT (07:15)
[2021-12-26 07:16] VITALS: BP 124/70; PULSE 83; RESP 20; TEMP 36.4; O2SAT 100
[2021-12-26 07:24] LABS: Glucose Point of Care 95 mg/dl (65-105)
--- NOTE | 2021-12-26 07:33 | WPDHPUPDATE1 ---
History and Physical Update Update Date/Time: 12/26/21 07:33 History and Physical has been reviewed, including an updated exam of the patient. There are NO changes in the patient's condition. Risks, benefits, and alternatives have been discussed and questions answered. Patient agrees to proceed with procedure.
--- NOTE | 2021-12-26 07:34 | PM.HPGS ---
History of Present Illness History of Present Illness Consent: Risks, benefits, and alternatives have been discussed and questions answered. Patient agrees to proceed with procedure. Chief complaint: Fibroid, Menorrhagia Narrative: Janey Slade is a 31 year old female with menorrhagia and known fibroids. Patient underwent a partial myomectomy in August of 2021 due to fluid imbalance became too high and the procedure had to be aborted prior to completion. The patient presents today for further myomectomy. Risks of infection, bleeding, perforation, and fluid imbalance were reviewed again. Patient voices no complaints and no changes in her history. Questions are answered and patient agrees to proceed. Review of Systems Review of Systems: not repeated day of surgery; patient states no changes in status PMFSH Past Medical History Medical History Abnormal uterine bleeding Allergic rhinitis Asthma Blood in stool Leiomyoma Morbid obesity with BMI of 40.0-44.9, adult Osteoarthritis of left knee Surgical History Surgical History (Updated 12/26/21 @ 07:36 by Laura Gillis MD) History of hysteroscopy With partial myomectomy August of 2021 S/P cubital tunnel release Family History Family History Mother Diabetes mellitus Hypertension Social History Social History Smoking status: Never smoker Second hand tobacco smoke exposure: No Alcohol intake: never Substance use: never Substance use type: does not use Living arrangements: with family Gender identity (if verbalized by the patient): Female Spiritual care concerns: No Meds Home Medications and Allergies Home Medications Medication Instructions Recorded Confirmed Type fluticasone propionate 50 1 spray intranasal Q12H #18.2 mL 10/29/19 12/22/21 Rx mcg/actuation nasal spray,suspension albuterol sulfate 90 mcg/actuation 2 puff inhalation Q4H PRN 08/26/20 12/22/21 Rx aerosol inhaler (ProAir HFA) shortness of breath or wheezing #8.5 grams azelastine 137 mcg (0.1 %) nasal 1 spray intranasal Q12H #30 mL 08/26/20 12/22/21 Rx spray aerosol spironolactone 50 mg tablet 50 mg PO DAILY 08/26/20 12/22/21 History montelukast 10 mg tablet 10 mg PO QPM #90 tabs 12/16/20 12/22/21 Rx (Singulair) relugolix 40 mg-estradiol 1 1 tablet PO DAILY 10/13/21 12/22/21 History mg-norethindrone acetate 0.5 mg tablet (Myfembree) metformin 500 mg tablet 500 mg PO BID #180 tabs 11/15/21 12/22/21 Rx Allergies Allergy/AdvReac Type Severity Reaction Status Date / Time ethinyl estradiol AdvReac Mild Rash Verified 12/22/21 09:17 [From Sprintec (28)] norgestimate AdvReac Mild Rash Verified 12/22/21 09:17 [From Sprintec (28)] Vital Signs Vital Signs - 24 hr 12/26/21 07:16 Temperature 97.5 F L Pulse Rate 83 Respiratory Rate 20 Blood Pressure 124/70 Pulse Oximetry 100 Oxygen Delivery Room Air Exam Const: General: healthy appearing and alert Orientation/consciousness: patient oriented x3 GI: GI Palp: Yes Soft to palpation, No Tenderness to palpation present (GI) and No Palpable mass present : External Female Exam: normal external appearance Speculum Exam - Vagina: normal appearance of the vagina and normal vaginal discharge Speculum Exam - Cervix: normal appearance of the cervix Bimanual exam- vagina & uterus: uterine size normal and consistency normal Bimanual Exam- Adnexa, other: normal adnexae and No adnexal tenderness Neuro: General: patient oriented x3 Assessment and Plan Assessment and plan (1) Leiomyoma: Code(s): D21.9 - Benign neoplasm of connective and other soft tissue, unspecified Status: Acute Assessment and Plan: Plan to proceed with MyoSure resection of fibroid (2) Abnormal uterine bleeding: Code(s): N93.9 -
--- NOTE | 2021-12-26 07:45 | WPDANESEPPF ---
Anes - Initial Pre Proc Eval Procedure: Operation Date: 12/26/21 08:30 Proposed Procedures p Hysteroscopy with Myosure, Myomectomy - Laura Gillis MD Date/Time: 12/26/21 07:45 Surgeon: Laura Gillis MD Pre Op Diagnosis: Fibroid, Menorrhagia Patient Data Age: 31 Gender: F Height: 1.63 m Weight: 109 kg Last Vital Signs Temp 36.4 C L 12/26/21 07:16 Pulse 83 12/26/21 07:16 Resp 20 12/26/21 07:16 BP 124/70 12/26/21 07:16 Pulse Ox 100 12/26/21 07:16 O2 Del Method Room Air 12/26/21 07:16 Allergies Allergy/AdvReac Type Severity Reaction Status Date / Time ethinyl estradiol AdvReac Mild Rash Verified 12/22/21 09:17 [From Sprintec (28)] norgestimate AdvReac Mild Rash Verified 12/22/21 09:17 [From [facility] (28)] Home Medications Medication Instructions Recorded Confirmed Type fluticasone propionate 50 1 spray intranasal Q12H #18.2 mL 10/29/19 12/22/21 Rx mcg/actuation nasal spray,suspension albuterol sulfate 90 mcg/actuation 2 puff inhalation Q4H PRN 08/26/20 12/22/21 Rx aerosol inhaler (ProAir HFA) shortness of breath or wheezing #8.5 grams azelastine 137 mcg (0.1 %) nasal 1 spray intranasal Q12H #30 mL 08/26/20 12/22/21 Rx spray aerosol spironolactone 50 mg tablet 50 mg PO DAILY 08/26/20 12/22/21 History montelukast 10 mg tablet 10 mg PO QPM #90 tabs 12/16/20 12/22/21 Rx (Singulair) relugolix 40 mg-estradiol 1 1 tablet PO DAILY 10/13/21 12/22/21 History mg-norethindrone acetate 0.5 mg tablet (Myfembree) metformin 500 mg tablet 500 mg PO BID #180 tabs 11/15/21 12/22/21 Rx Laboratory Tests 12/26/21 07:11 POC Capillary Glucose 95 mg/dl mg/dl (65-105) Patient hx anesthesia problems: none Family hx anesthesia problems: none Results Review: All pre-operative results and documents have been reviewed as part of the pre-operative evaluation. [facility] Past Medical History Medical History Abnormal uterine bleeding Allergic rhinitis Asthma Blood in stool Leiomyoma Morbid obesity with BMI of 40.0-44.9, adult Osteoarthritis of left knee Surgical History Surgical History History of hysteroscopy With partial myomectomy August of 2021 S/P cubital tunnel release Family History Family History Mother Diabetes mellitus Hypertension Social History Social History Smoking status: Never smoker Second hand tobacco smoke exposure: No Alcohol intake: never Substance use: never Substance use type: does not use Living arrangements: with family Gender identity (if verbalized by the patient): Female Spiritual care concerns: No Anes - Eval Final PreProcedure Day of Procedure 12/26/21 07:45 Patient weight: morbidly obese Heart: regular rate and rhythm Lungs: clear to auscultation Airway: Mallampati scale class II Neurological: alert and oriented Last oral intake: >/= 8 hours ASA classification: III Emergent: no Anesthetic plan: proceed Anesthesia type and monitoring: general GIVS and standard monitoring Results Review: All pre-operative results and documents have been reviewed as part of the pre-operative evaluation. Informed Consent: The patient's anesthetic plan and its attendant risks and benefits were discussed with the patient/family/POA. Questions were solicited and answers provided to the satisfaction of the patient/family/POA.
[2021-12-26] MEDS: LIDOCAINE HCL 1% PF 30 ML VIAL INFILTRATE (08:52)
--- NOTE | 2021-12-26 09:14 | W.PM.PROC2 ---
Procedure Note - Detailed Date of Procedure 12/26/21 Pre-op Diagnosis Fibroid, Menorrhagia Post-op Diagnosis Same Procedure Performed Hysteroscopic myomectomy Surgeon Laura Gillis MD Anesthesia MAC and Local Findings Uterus sounds to 10cm. There was a fibroid on the left lateral sidewall. Description of Procedure The patient was taken to the operating room and placed under anesthesia in the dorsal lithotomy position. She was prepped and draped in usual sterile fashion. Henrietta speculum was placed in the vagina and the cervix grasped on the anterior lip with a tenaculum. Each quadrant was injected with 1% lidocaine. The uterus is sounded to 10cm and the cervix serially dilated with Hegar. The MyoSure XL scope was placed and the previously found fibroid is again identified. The MyoSure device is placed and under direct visualization the fibroid was amputated at the base. The base is then resected until the endometrium was flat. The hysteroscope was removed and the myoma graspers are used to attempt to remove the amputated fibroid. This is somewhat successful and 3 small pieces are removed. The instruments were then removed and the patient awakened from anesthesia and taken to recovery in stable condition. Sponge, needle, and instrument counts are correct per the operating room staff. Estimated Blood Loss 5 Drains No Packing No Pathology Yes (MyoSure shavings and pieces of fibroid) Complications No immediate complications Condition Stable Disposition PACU
[2021-12-26 09:22] VITALS: BP 102/62; PULSE 87; RESP 12; O2SAT 93
[2021-12-26 09:45] VITALS: BP 109/56; PULSE 86; RESP 16; O2SAT 96
[2021-12-26] MEDS: oxyCODONE HCL (*CRX) 5 MG TAB IR PO (09:51)
[2021-12-26 09:55] VITALS: BP 120/94; PULSE 80; RESP 16; O2SAT 97
[2021-12-26 10:25] VITALS: BP 120/75; PULSE 69; RESP 16; O2SAT 100
== END 2021-12-26 10:43 | disposition home or self-care (01) ==
PROVIDERS: PCP Family Medicine; Visit Provider Obstetrics & Gynecology Gynecology
PROC: 0U5B8ZZ Destruction of Endometrium, Via Natural or Artificial Opening Endoscopic (ICD-10-PCS; CPT 58563; principal; 2021-12-26 08:30)
DX: D25.9 Leiomyoma of uterus, unspecified (principal); N92.0 Excessive and frequent menstruation with regular cycle; Z79.84 Long term (current) use of oral hypoglycemic drugs; Z79.51 Long term (current) use of inhaled steroids; E66.01 Morbid (severe) obesity due to excess calories; Z68.41 Body mass index [BMI] 40.0-44.9, adult
CPT/HCPCS: 58561; 82948; 88305; A9270; J1100; J1741; J2405; J2704; J3010; J7120

== ENCOUNTER 2022-03-21 16:32 | Outpatient (CLI) | payer BC, SELFPAY ==
--- NOTE | ~2022-03-21 | XR_ITS ---
XR abdomen/kub 1V DATE: 03/21/2022 16:54 INDICATION: Slow transit constipation TECHNIQUE: AP projection, 2 views COMPARISON: None FINDINGS: There is a prominent amount of internal and ascending colon, hepatic flexure, transverse co nya, splenic flexure and descending colon and mid to distal sigmoid colon. No bowel obstruction is ev ident. The psoas shadows are intact. No visceromegaly or significant abnormal calcification is noted. Included skeletal structures are unremarkable. IMPRESSION: Prominent amount of fecal material in the colon consistent with constipation Reviewed, dictated and finalized at [facility]. Reviewed, dictated and finalized at [facility]. R SYSTEM DISPATCHER IMPRESSION: Prominent amount of fecal material in the colon consistent with con stipation
== END 2022-03-21 16:33 | disposition home or self-care (01) ==
LOC: ANHIMG 16:35
PROVIDERS: PCP Family Medicine; Visit Provider Family Medicine
DX: K59.01 Slow transit constipation (principal)
CPT/HCPCS: 74018

== ENCOUNTER → 2022-05-11 10:35 | Outpatient (CLI) | payer BC, SELFPAY ==
--- NOTE | ~2022-05-11 | US_ITS ---
Pelvic ultrasound. Clinical History: Left lower quadrant pelvic pain Technique: Realtime transabdominal and transvaginal scanning of the pelvis was performed. Color flow Doppler and Doppler spectral analysis were performed. Findings: The uterus is anteverted. The endometrial stripe has a thickness of 6 mm. Exophytic fundal fibroid measures 3.3 cm in maximum diameter. Possible additional fibroid towards the lower uterine s egment measuring 3.0 x 2.5 x 1.5 cm. The right ovary measures 3.1 x 2.2 x 2.3 cm. No significant right ovarian or adnexal mass is seen. The left ovary measures 2.5 x 1.4 x 2.9 cm. No significant left ovarian or adnexal mass is seen. There is no evidence of free fluid in the cul de sac. Impression: Uterine fibroids, as detailed above. Reviewed, dictated and finalized at [facility]. SITE PROPERTY MANAGER Impression: Uterine fibroids, as detailed above.
== END ==
PROVIDERS: PCP Family Medicine; Visit Provider Obstetrics & Gynecology Gynecology
DX: R10.32 Left lower quadrant pain (principal); D25.9 Leiomyoma of uterus, unspecified
CPT/HCPCS: 76856

== ENCOUNTER 2022-05-11 11:01 | Outpatient (CLI) | payer BC, SELFPAY ==
[2022-05-11 11:34] LABS: Hematocrit 38.4 % (37.0-47.0); Mean Corpuscular HGB Conc 31.3 g/dl (32-36); Mean Corpuscular Hemoglobin 28.6 pg (26-34); Mean Corpuscular Volume 91.6 fl (80-100); Mean Platelet Volume 9.1 fl (7.4-10.4); Platelet Count Result 343 k/mm3 (150-375); Red Blood Count 4.19 M/mm3 (4.2-5.4); Red Cell Distribution Width 14.5 % (11.5-14.5); White Blood Count 7.6 K/mm3 (4.5-10.0)
== END 2022-05-11 11:02 | disposition home or self-care (01) ==
LOC: ANHLAB 11:03
PROVIDERS: PCP Family Medicine; Visit Provider Obstetrics & Gynecology Gynecology
DX: N92.0 Excessive and frequent menstruation with regular cycle (principal); Z13.21 Encounter for screening for nutritional disorder
CPT/HCPCS: 36415; 82306; 85027

== ENCOUNTER 2022-08-18 12:27 | Outpatient (CLI) | payer BC, SELFPAY ==
[2022-08-18 12:51] LABS: Hematocrit 38.8 % (37.0-47.0); Hemoglobin 12.6 g/dL (12.0-15.0); Mean Corpuscular HGB Conc 32.5 g/dl (32-36); Mean Corpuscular Hemoglobin 29.2 pg (26-34); Mean Corpuscular Volume 89.8 fl (80-100); Mean Platelet Volume 9.1 fl (7.4-10.4); Platelet Count Result 322 k/mm3 (150-375); Red Blood Count 4.32 M/mm3 (4.2-5.4); Red Cell Distribution Width 13.5 % (11.5-14.5); White Blood Count 7.6 K/mm3 (4.5-10.0)
[2022-08-18 13:14] LABS: Vitamin D 25 Hydroxy 32.8 ng/mL
== END 2022-08-18 12:28 | disposition home or self-care (01) ==
LOC: ANHLAB 12:28
PROVIDERS: PCP Family Medicine; Visit Provider Obstetrics & Gynecology Gynecology
DX: E55.9 Vitamin D deficiency, unspecified (principal); N92.0 Excessive and frequent menstruation with regular cycle
CPT/HCPCS: 36415; 82306; 85027

== ENCOUNTER 2022-11-20 15:38 | Outpatient (CLI) | payer BC, SELFPAY ==
--- NOTE | ~2022-11-20 | XR_ITS ---
EXAMINATION: XR knee LT 3V DATE: 11/20/2022 15:56 INDICATION: Chronic left knee pain TECHNIQUE: Weight bearing anteroposterior, sunrise, and flexed lateral views of the left knee were ob tained COMPARISON: None. FINDINGS: Alignment is normal. No fracture. Joint spaces are normal. No erosions. No joint effusion. Soft tiss ues are unremarkable. IMPRESSION: 1. Negative left knee radiographs. Reviewed, dictated and finalized at [facility].
== END 2022-11-20 15:39 | disposition home or self-care (01) ==
PROVIDERS: PCP Family Medicine; Visit Provider Physician Assistant
DX: M25.562 Pain in left knee (principal)
CPT/HCPCS: 73562

== ENCOUNTER 2023-02-16 14:56 | Outpatient (CLI) | payer BC, SELFPAY ==
[2023-02-16 16:38] LABS: Vitamin D 25 Hydroxy 53.6 ng/mL
== END 2023-02-16 14:57 | disposition home or self-care (01) ==
LOC: ANHLAB 14:58
PROVIDERS: PCP Family Medicine; Visit Provider Obstetrics & Gynecology Gynecology
DX: E55.9 Vitamin D deficiency, unspecified (principal)
CPT/HCPCS: 36415; 82306

== ENCOUNTER 2023-11-02 07:05 | Outpatient (CLI) | payer BC, SELFPAY ==
[2023-11-02 07:50] LABS: Basophils Absolute Auto 0.1 K/mm3 (0.0-0.1); Basophils Percent Auto 0.9 % (0.2-1.2); Eosinophils Absolute Auto 0.1 K/mm3 (0-0.3); Eosinophils Percent Auto 1.9 % (0-4.4); Hematocrit 41.2 % (37.0-47.0); Hemoglobin 13.4 g/dL (12.0-15.0); Immature Granulocyte Absolute 0.03 K/mm3 (0.00-0.031); Immature Granulocyte Percent A 0.5 % (0-0.5); Lymphocytes Absolute Auto 1.51 K/mm3 (0.9-3.2); Mean Corpuscular HGB Conc 32.5 g/dl (32-36); Mean Corpuscular Hemoglobin 30.7 pg (26-34); Mean Corpuscular Volume 94.3 fl (80-100); Mean Platelet Volume 9.1 fl (7.4-10.4); Monocytes Absolute Auto 0.7 K/mm3 (0.1-0.6); Monocytes Percent Auto 11.9 % (2.6-8.5); Neutrophils Absolute Auto 3.4 K/mm3 (1.3-6.7); Neutrophils Percent Auto 58.8 % (45.5-73.1); Platelet Count Result 336 k/mm3 (150-375); Red Blood Count 4.37 M/mm3 (4.2-5.4); Red Cell Distribution Width 12.9 % (11.5-14.5); White Blood Count 5.8 K/mm3 (4.5-10.0)
[2023-11-02 08:07] LABS: Alanine Aminotransferase 17 U/L (6-35); Albumin Level 4.2 g/dL (3.5-5.1); Alkaline Phosphatase 53 U/L (38-126); Anion Gap 9 mmol/L (4-12); Aspartate Amino Transferase 21 U/L (14-36); Bilirubin,Total 0.5 mg/dL (0.2-1.3); Blood Urea Nitrogen 15 mg/dL (7-17); Calcium 8.6 mg/dL (8.4-10.2); Carbon Dioxide 22 mmol/L (22-30); Chloride 107 mmol/L (98-107); Cholesterol 192 mg/dL (0-200); Estimated Glomerular Filt Rate > 60; Glucose 100 mg/dL (65-110); HDL Direct 51 mg/dL; Potassium 4.4 mmol/L (3.4-5.0); Sodium 138 mmol/L (137-145); Triglycerides 59 mg/dL (<150)
[2023-11-02 08:17] LABS: LDL Cholesterol Direct 108 mg/dL
== END 2023-11-02 07:06 | disposition home or self-care (01) ==
LOC: ANHLAB 07:06
PROVIDERS: PCP Family Medicine; Visit Provider Physician Assistant
DX: D64.9 Anemia, unspecified (principal); K58.9 Irritable bowel syndrome, unspecified; Z13.220 Encounter for screening for lipoid disorders
CPT/HCPCS: 36415; 80053; 80061; 85025

== ENCOUNTER 2023-12-08 08:39 | Outpatient (CLI) | payer BC, SELFPAY ==
--- NOTE | ~2023-12-08 | US_ITS ---
EXAMINATION: US pelvic complete w TV DATE: 12/08/2023 09:12 INDICATION: Uterine fibroids. TECHNIQUE: Multiple transabdominal and transvaginal sonographic images of the pelvis were obtained. COMPARISON: Ultrasound 05/11/2022 FINDINGS: TRANSABDOMINAL ULTRASOUND: The uterus measures 12.4 x 4.2 x 6.1 cm. There is no free fluid in the pelvis. TRANSVAGINAL ULTRASOUND: The endometrial complex measures 7 mm in thickness. There is a 10 mm subserosal fibroid. There is a 2 .6 cm intramural fibroid. There is a 2.8 cm subserosal fibroid. There is a 3.3 cm subserosal fibroid. There is a 1.8 cm intramural fibroid. The right ovary measures 3.0 x 1.4 x 2.1 cm. The left ovary me asures 2.4 x 1.4 x 2.6 cm. There is normal vascular flow in the ovaries. IMPRESSION: 1. Uterine fibroids. Reviewed, dictated and finalized at [facility]. IMPRESSION: 1. Uterine fibroids.
== END 2023-12-08 08:40 | disposition home or self-care (01) ==
LOC: MICIMG 08:40
PROVIDERS: PCP Family Medicine; Visit Provider Obstetrics & Gynecology
DX: D25.9 Leiomyoma of uterus, unspecified (principal)
CPT/HCPCS: 76830; 76856

== ENCOUNTER 2024-10-27 15:00 | Outpatient (CLI) | payer BC, SELFPAY ==
--- OUTSIDE RECORDS SUMMARY | 2024-10-27 15:05 | XMS_ITS | Clinical Summary ---
Author Organization [facility] Address [facility] [place] [address] Care Team Providers Care Claims Coordinator Name Role Phone Christy Valle MD Primary Care Provider [phone]- [phone] Allergies No known active allergies Medications ondansetron 4 MG disintegrating tablet Take 1 tablet (4 mg total) by mouth every 8 (eight) hours as needed for Nausea. 20 tablet 0 Active Social History Tobacco Use Types Packs/Day Years Used Date Smoking Tobacco: Never Smokeless Tobacco: Never Alcohol Use Standard Drinks/Week Comments Never 0 (1 standard drink = 0.6 oz pur e alcohol) AUDIT-C Answer Date Recorded Frequency of Alcohol Consumption Never 11/02/2019 Average Number of Drinks Not on file 020 Frequency of Binge Drinking Not on file 05/2019 Comments No Sex and Gender Information Value Date Recorded Sex Assigned at Not on file Legal Sex Female 4:42 PM CDT Gender Identity Not on file Sexual Orientation Not on file Last Filed Vital Signs Vital Sign Reading Time Taken Comments Blood Pressure 118/90 02/18/2021 9:28 PM REBAR BENDER Pulse 110 02/18/2021 9:28 PM REBAR BENDER Temperature 37.1 C (98.7 F) 02/18/2021 9:28 PM REBAR BENDER Respiratory Rate 18 02/18/2021 9:28 PM REBAR BENDER Oxygen Saturation 98% 02/18/2021 9:28 PM REBAR BENDER Inhaled Oxygen Concentration - - Weight 112 kg (246 lb 14.6 oz) 02/18/2021 9:28 P M REBAR BENDER Height 162.6 cm (5' 4) 02/18/2021 9:28 PM REBAR BENDER Body Mass Index 42.38 02/18/2021 9:28 PM REBAR BENDER Plan of Treatment Health Maintenance Due Date Last Done Comments Cervical Cancer Screening Pa p Smear (Age 30 to 64) Every 3 Years 1991 Annual Physical 1994 Hepatitis C 2009 DTaP, Tdap and Td Vaccines ( 1 - Tdap) 2010 Hepatitis B Vaccines (1 of 3 - 19+ 3-dose series) 2010 HPV Vaccines (1 - 3-dose SCD M series) 2018 Cervical Cancer Screening Pa p with HPV Testing (Age 30 to 64) Every 5 Years 2021 Cervical Cancer Screening with HPV 2021 COVID-19 Vaccine (2023-2 5 season) 2023 Meningococcal B Vaccine Aged Out No l onger eligible based on patient's age to complete this topic Meningococcal Vaccine Aged Out No nya sarah eligible based on patient's age to complete this topic Pneumococcal Vaccine: Pediat rics (0 to 5 Years) and At-Risk Patients (6 to 49 Years) Aged Out No longer eligible b ased on patient's age to complete this topic RSV Immunizations Under 20 Months Aged Out No longer eligible based on patient's age to complete this topic Insurance [employer] Care Teams Claims Coordinator Relationship Specialty Start Date End Date Christy Valle MD [address] [place] [address] PCP - General FAMILY PRACTICE 11/02/19
--- OUTSIDE RECORDS SUMMARY | 2024-10-27 15:05 | XMS_ITS | Clinical Summary ---
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 Gender Identity Not on file Sexual Orientation Not on file Plan of Treatment Health Maintenance Due Date Last Done Comments Hepatitis C Virus (HCV) Screening 1991 TdaP Immunization 1991 Human Papillomavirus (HPV) Immunization (1 - 3-dose series) 2006 Hepatitis B Immunization (1 of 3 - 19+ 3-dose series) 2010 Pap Smear 2012 Cervical Cancer Screening (CCS) 2021 HPV/Cotest 2021 SARS-COV-2 Immunization ( - 2023- season) 2023 07/16/2020, 06/18/2020 Influenza Immunization (#1) 2024 Respiratory Syncytial Virus (RSV) Immunization (Adult) (1 - 1-dose 75+ series) 2066 DTaP/Tdap/Td Immunization Discontinued 12/16/1993 Meningococcal Immunization (ACWY) Aged Out No longer eligible based on patient's age to complete this topic Pneumococcal Immunization Combined Aged Out No longer eligible based on patient's age to complete this topic Rotavirus Immunization Aged Out No lo nger eligible based on patient's age to complete this topic
--- OUTSIDE RECORDS SUMMARY | 2024-10-27 15:05 | XMS_ITS | Clinical Summary ---
Author Organization [facility] Address [address] [place] [address] Care Team Providers Care Chemical Laboratory Scientist Name Role Phone Christy Valle MD Primary Care Provider + Source Comments [facility],non-owned Affiliates and Associated Physician Practices is amultiple site organization consisting of ambulatory clinics and hospital sitesin [place], [place], [place] and [place]. This disclosure is being madepursuant to the Care Everywhere program and may not contain all information available regarding this patient. Last updated 17.[facility] Allergies No known active allergies Medications * Be aware that medications may not be up to date on this document. Alwaysverify current medications with the patient. Budesonide-Formo terol Fumarate (SYMBICORT IN) Activ e benzonatate (TESSALON) 100 MG capsuleIndicatio ns:Acute bronchitis, unspecified organism You can take 1-2 tablets PO TID PRN, max dose 6 tablets in 24 hours. 30 Cap 10/09/2016 Active Family History Medical History Relation Name Comments Diabetes - Type 2 Mother Relation Name Status Comments Mother Social History Tobacco Use Types Packs/Day Years Used Date Smoking Tobacco: Never Smokeless Tobacco: Never Comments No Sex and Gender Information Value Date Recorded Sex Assigned at Not on file Legal Sex Female 10:14 AM CDT Gender Identity Not on file Sexual Orientation Not on file Last Filed Vital Signs Vital Sign Reading Time Taken Comments Blood Pressure 118/76 10/09/2016 10:24 AM CDT Pulse 68 10/09/2016 10:24 AM CDT Temperature 36.8 C (98.2 F) 10/09/2016 10:24 AM CDT Respiratory Rate 16 10/09/2016 10:24 AM CDT Oxygen Saturation 99% 10/09/2016 10:24 AM CDT Inhaled Oxygen Concentration - - Weight 116.6 kg (257 lb) 10/09/2016 10:24 AM CDT Height 162.6 cm (5' 4) 10/09/2016 10:24 AM CDT Body Mass Index 44.11 10/09/2016 10:24 AM CDT Plan of Treatment Health Maintenance Due Date Last Done Comments HIV SCREENING 2006 HEPATITIS C SCREENING 03/27/2009 DTAP/TDAP/TD VACCINES (1 - Tdap) 2010 HEPATITIS B VACCINE (1 of 3 - 19+ 3-dose series) 2010 HPV VACCINE (1 - 3-dose SCDM series) 2018 COVID-19 VACCINE (1 - 2023-2 5 season) 2023 DEPRESSION SCREENING 04/02/2024 INFLUENZA VACCINE (#1) 2024 ZOSTER VACCINE (1 of 2) 2041 HIB VACCINE Aged Out No longer eligi ble based on patient's age to complete this topic MENINGOCOCCAL (Group B) VACC INE SHARED DECISION-MAKING Aged Out No longer eligibl e based on patient's age to complete this topic MENINGOCOCCAL GROUPS A/C/Y/W VACCINE Aged Out No longer eligible b ased on patient's age to complete this topic PNEUMOCOCCAL VACCINE Aged Out No long er eligible based on patient's age to complete this topic Care Teams Chemical Laboratory Scientist Relationship Specialty Start Date End Date Christy Valle MD [address] [place] [address] PCP - General 11/14/21
[2024-10-27 15:21] LABS: Hematocrit 38.6 % (37.0-47.0); Hemoglobin 12.7 g/dL (12.0-15.0); Immature Granulocyte Percent A 0.2 % (0-0.5); Lymphocytes Absolute Auto 2.52 K/mm3 (0.9-3.2); Mean Corpuscular HGB Conc 32.9 g/dl (32-36); Mean Corpuscular Hemoglobin 30.5 pg (26-34); Mean Corpuscular Volume 92.6 fl (80-100); Nucleated Red Blood Cells Absolute Auto 0.000 K/mm3 (0.0-0.012); Nucleated Red Blood Cells Perc 0.0 % (0.0-0.2); Platelet Count Result 292 k/mm3 (150-375); Red Blood Count 4.17 M/mm3 (4.2-5.4); White Blood Count 9.2 K/mm3 (4.5-10.0)
[2024-10-27 15:42] LABS: Alanine Aminotransferase 14 U/L (6-35); Albumin Level 4.1 g/dL (3.5-5.1); Alkaline Phosphatase 69 U/L (38-126); Anion Gap 12 mmol/L (4-12); Aspartate Amino Transferase 24 U/L (14-36); Bilirubin,Total 0.4 mg/dL (0.2-1.3); Blood Urea Nitrogen 10 mg/dL (7-17); Calcium 9.3 mg/dL (8.4-10.2); Carbon Dioxide 17 mmol/L (22-30); Chloride 108 mmol/L (98-107); Cholesterol 219 mg/dL (0-200); Estimated Glomerular Filt Rate > 60; Glucose 76 mg/dL (65-110); HDL Direct 52 mg/dL; Potassium 3.9 mmol/L (3.4-5.0); Sodium 137 mmol/L (137-145); Total Protein 7.7 g/dL (6.3-8.2); Triglycerides 79 mg/dL (<150)
== END 2024-10-27 15:01 | disposition home or self-care (01) ==
LOC: ANHLAB 15:01
PROVIDERS: PCP Family Medicine; Visit Provider Physician Assistant
DX: D64.9 Anemia, unspecified (principal); J45.20 Mild intermittent asthma, uncomplicated; Z13.220 Encounter for screening for lipoid disorders
CPT/HCPCS: 36415; 80053; 80061; 85025

== ENCOUNTER 2025-03-05 14:03 | Outpatient (CLI) | payer BC, SELFPAY ==
[2025-03-05 14:41] LABS: Hematocrit 38.1 % (37.0-47.0); Hemoglobin 12.5 g/dL (12.0-15.0); Immature Granulocyte Percent A 0.2 % (0-0.5); Lymphocytes Absolute Auto 2.36 K/mm3 (0.9-3.2); Mean Corpuscular HGB Conc 32.8 g/dl (32-36); Mean Corpuscular Hemoglobin 31.1 pg (26-34); Mean Corpuscular Volume 94.8 fl (80-100); Nucleated Red Blood Cells Absolute Auto 0.000 K/mm3 (0.0-0.012); Nucleated Red Blood Cells Perc 0.0 % (0.0-0.2); Platelet Count Result 308 k/mm3 (150-375); Red Blood Count 4.02 M/mm3 (4.2-5.4); White Blood Count 8.4 K/mm3 (4.5-10.0)
[2025-03-05 14:52] LABS: Iron 60 ug/dL (37-170)
[2025-03-05 14:57] LABS: Alanine Aminotransferase 13 U/L (6-35); Albumin Level 4.3 g/dL (3.5-5.1); Alkaline Phosphatase 53 U/L (38-126); Anion Gap 9 mmol/L (4-12); Aspartate Amino Transferase 21 U/L (14-36); Bilirubin,Total 0.5 mg/dL (0.2-1.3); Blood Urea Nitrogen 14 mg/dL (7-17); Calcium 9.1 mg/dL (8.4-10.2); Carbon Dioxide 15 mmol/L (22-30); Chloride 113 mmol/L (98-107); Estimated Glomerular Filt Rate 57; Glucose 75 mg/dL (65-110); Potassium 4.3 mmol/L (3.4-5.0); Sodium 137 mmol/L (137-145); Total Protein 8.3 g/dL (6.3-8.2)
[2025-03-05 15:07] LABS: Percent Iron Saturation 16 % (20-50)
[2025-03-05 15:33] LABS: Ferritin 33.00 ng/mL (6.24-137)
== END 2025-03-05 14:04 | disposition home or self-care (01) ==
LOC: ANHLAB 14:05
PROVIDERS: PCP Family Medicine; Visit Provider Obstetrics & Gynecology
DX: N92.0 Excessive and frequent menstruation with regular cycle (principal)
CPT/HCPCS: 36415; 80053; 82728; 83540; 83550; 85025